=== PATIENT | female | born 1950 | race Caucasian/White ===

== ENCOUNTER 2018-01-24 12:46 | Inpatient (IN) | payer MEDICARE, BC ==
[~2018-01-24] VITALS: Ht 166.4 cm; Wt 49.6 kg
[2018-01-24 14:20] VITALS: BP 128/79
[2018-01-24] MEDS ORDERED: UMEC1DIS INH (15:02)
[2018-01-24] MEDS ORDERED: FLUT9.9S NS (15:02)
[2018-01-24] MEDS ORDERED: NITROGLYCERIN 0.4 MG BOTTLE (25 TABS) SL PRN (15:30)
[2018-01-24] MEDS ORDERED: NITROGLYCERIN 0.4 MG/SPRAY SL PRN (15:30)
[2018-01-24] MEDS ORDERED: ACETAMINOPHEN 325 MG TABLET PO PRN (15:30)
[2018-01-24] MEDS ORDERED: hydrALAzine 20 MG/ML, 1ML IVPush PRN (15:30)
[2018-01-24] MEDS ORDERED: ONDANSETRON ODT 4 MG PO PRN (15:30)
[2018-01-24] MEDS ORDERED: HEPARIN 1,000 UNITS/ML, 10ML ONE (15:40)
[2018-01-24] MEDS ORDERED: MIDAZOLAM 1 MG/ML, 5ML ONE (15:40)
[2018-01-24] MEDS ORDERED: BIVALIRUDIN 250 MG ONE (15:40)
[2018-01-24] MEDS ORDERED: VERAPAMIL 2.5 MG/ML, 2ML ONE (15:40)
[2018-01-24] MEDS ORDERED: TICAGRELOR 90 MG TABLET ONE (15:40)
[2018-01-24] MEDS ORDERED: FENTANYL PF 100 MCG/2ML ONE (15:40)
[2018-01-24] MEDS: INSULIN LISPRO 100 UNITS/ML, PEN SQ-INSULIN SCH ×2 (16:00→20:30)
[2018-01-24] MEDS ORDERED: FUROSEMIDE 40 MG/4 ML ONE (16:12)
[2018-01-24] MEDS ORDERED: POTASSIUM CHLORIDE 20 MEQ TAB.ER.PRT PO ONE (16:30)
[2018-01-24] MEDS: CLINDAMYCIN 300 MG CAPSULE PO SCH ×2 (16:58→21:30)
[2018-01-24] MEDS ORDERED: ALBUTEROL SULFATE 2.5 MG/3 ML NPPB PRN (18:00)
[2018-01-24 20:54] VITALS: BP 108/60
[2018-01-24] MEDS ORDERED: ATORVASTATIN 80 MG TABLET PO SCH (21:00)
[2018-01-25 01:25] VITALS: BP 100/63
[2018-01-25] MEDS: CLINDAMYCIN 300 MG CAPSULE PO SCH ×2 (03:50→09:49)
[2018-01-25] MEDS ORDERED: ASPIRIN 81 MG TABLET EC ONE (03:57)
[2018-01-25 05:35] LABS: MEAN CORPUSCULAR HEMOGLOBIN 28.3 pg (27.0-34.8); MEAN CORPUSCULAR HGB CONC 32.8 g/dL (32.4-35.8); MEAN CORPUSCULAR VOLUME 86.4 fL (80-100); MEAN PLATELET VOLUME 7.4 fL (7.4-10.4); PLATELET COUNT 331 x10^3/uL (130-400); RED BLOOD COUNT 3.56 x10^6/uL (3.82-5.3); RED CELL DISTRIBUTION WIDTH 16.6 % (9.6-15.2)
[2018-01-25 05:43] LABS: ANION GAP 6 mmol/L (5-15); CALCIUM 8.1 mg/dL (8.5-10.1); CHLORIDE 109 mmol/L (98-107); CHOLESTEROL, TOTAL 152 mg/dL (140-239); CREATININE 0.73 mg/dL (0.55-1.02); TRIGLYCERIDES 76 mg/dL (50-200); VLDL CHOLESTEROL 15 mg/dL (0-25)
[2018-01-25 05:45] LABS: CHOL/HDL RATIO 2.4; HDL CHOL % 41 % (28-40); HDL CHOLESTEROL (DIRECT) 63 mg/dL (40-60); LDL CHOLESTEROL,CALCULATED 74 mg/dL (54-169); LDL/HDL RATIO 1.2 (0.5-3.0)
[2018-01-25] MEDS ORDERED: ASPIRIN 81 MG TABLET EC PO SCH (06:00)
[2018-01-25 06:06] LABS: BASOPHILS # (AUTO) 0.01 x10^3/uL (0-0.1); BASOPHILS % (AUTO) 0 % (0-1); EOSINOPHILS % (AUTO) 0 % (1-7); LYMPHOCYTES # (AUTO) 1.31 x10^3/uL (1-3.4); LYMPHOCYTES % (AUTO) 6 % (22-44); MD SCAN; MONOCYTES # (AUTO) 0.96 x10^3/uL (0.2-0.8); MONOCYTES % (AUTO) 5 % (2-9); NEUTROPHILS # (AUTO) 18.77 x10^3/uL (1.8-6.8); NEUTROPHILS % (AUTO) 89 % (42-75)
[2018-01-25 06:31] LABS: HEMOGLOBIN A1C 5.4 % (4.2-6.3)
[2018-01-25] MEDS: INSULIN LISPRO 100 UNITS/ML, PEN SQ-INSULIN SCH ×3 (07:00→16:00)
[2018-01-25 07:36] VITALS: BP 121/76
[2018-01-25] MEDS: CARVEDILOL 3.125 MG TABLET PO SCH ×2 (07:48→17:12)
[2018-01-25] MEDS ORDERED: predniSONE 50MG TABLET PO SCH (08:00)
[2018-01-25] MEDS ORDERED: AZITHROMYCIN 500 MG TABLET PO SCH (09:00)
[2018-01-25] MEDS ORDERED: LISINOPRIL 5 MG TABLET PO SCH (09:00)
[2018-01-25 09:57] VITALS: BP 99/63
[2018-01-25] MEDS ORDERED: CLOPIDOGREL 75 MG TABLET PO SCH (12:00)
[2018-01-25] MEDS ORDERED: NITR0.4T SL (13:20)
[2018-01-25] MEDS ORDERED: ASPI-621 PO (13:20)
[2018-01-25] MEDS ORDERED: CLOP75TA PO (13:20)
[2018-01-25] MEDS ORDERED: PRED50TA PO (13:20)
[2018-01-25] MEDS ORDERED: ATOR-2 PO (13:20)
[2018-01-25 14:17] VITALS: BP 120/72
[2018-01-25] MEDS ORDERED: ATORVASTATIN 40 MG TABLET PO SCH (21:00)
== END 2018-01-25 17:10 | disposition home or self-care (01) | DRG 280 ==
LOC: 5SO 14:19
PROVIDERS: ADMIT Hospitalist; ATTEND Hospitalist
PROC: 4A023N7 Measurement of Cardiac Sampling and Pressure, Left Heart, Percutaneous Approach (ICD-10-PCS; principal; 2018-01-24)
PROC: B2111ZZ Fluoroscopy of Multiple Coronary Arteries using Low Osmolar Contrast (ICD-10-PCS; 2018-01-24)
PROC: B2151ZZ Fluoroscopy of Left Heart using Low Osmolar Contrast (ICD-10-PCS; 2018-01-24)
DX: I21.4 Non-ST elevation (NSTEMI) myocardial infarction (principal); J96.21 Acute and chronic respiratory failure with hypoxia; J44.1 Chronic obstructive pulmonary disease with (acute) exacerbation; I42.9 Cardiomyopathy, unspecified; D72.829 Elevated white blood cell count, unspecified; E87.6 Hypokalemia; F17.200 Nicotine dependence, unspecified, uncomplicated; I25.10 Atherosclerotic heart disease of native coronary artery without angina pectoris; J32.9 Chronic sinusitis, unspecified; Z99.81 Dependence on supplemental oxygen; Z79.82 Long term (current) use of aspirin; Z79.899 Other long term (current) drug therapy; Z88.0 Allergy status to penicillin; Z88.2 Allergy status to sulfonamides; Z88.8 Allergy status to other drugs, medicaments and biological substances; Z82.49 Family history of ischemic heart disease and other diseases of the circulatory system; Z80.8 Family history of malignant neoplasm of other organs or systems
CPT/HCPCS: 36415; 80048; 80061; 82962; 83036; 85025; 93306; 93458; 99156; C1769; C1894; G0378; J0583; J1644; J1940; J2250; J3010; J7512; Q9967